=== PATIENT | female | born 1955 | race Caucasian/White ===

== ENCOUNTER 2022-02-24 21:51 | Emergency (ER) | payer OTHER, MEDICARE, SELFPAY ==
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
[2022-02-24 21:47] VITALS: BP 165/85; PULSE 103; RESP 18; TEMP 36.8; O2SAT 98
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
[2022-02-24] MEDS: HYDROmorphone HCL INJ (*CRX) 1 MG/ML SYR 0.5 MG IV PUSH (22:53)
--- NOTE | 2022-02-24 22:58 | ECG_ITS ---
Measurements Intervals Reading Rate: 103 P: 41 ND: 176 QRS: 10 QRSD: 80 T: 19 QT: 305 QTc: 400 Interpretive Statements SINUS TACHYCARDIA LOW QRS VOLTAGE NONSPECIFIC ST & T-WAVE ABNORMALITY ABNORMAL RHYTHM ECG NO PREVIOUS ECG AVAILABLE FOR COMPARISON Electronically Signed On 02-25-2022 7:21:56 CDT by Jerome Bejarano M.D.
[2022-02-24 23:11] LABS: Anion Gap 11 mmol/L (8-16); Blood Urea Nitrogen 16 mg/dL (7-17); Calcium 9.1 mg/dL (8.4-10.2); Carbon Dioxide 26 mmol/L (22-30); Chloride 101 mmol/L (98-107); Estimated CRCL calculation 68 ml/min; Estimated Glomerular Filt Rate > 60; Glucose 164 mg/dL (65-110); Potassium 3.8 mmol/L (3.4-5.0); Sodium 138 mmol/L (137-145)
--- NOTE | 2022-02-24 23:25 | PC.NURSE ---
Pt to CT via stretcher at this time.
[2022-02-24 23:39] VITALS: BP 166/88; PULSE 106; RESP 17; O2SAT 98
[2022-02-25 00:38] VITALS: BP 137/74; PULSE 87; RESP 21; O2SAT 94
[2022-02-25 00:42] LABS: Appearance Urine Clear (Clear); Bilirubin Urine Negative (Negative); Blood Urine Trace-lysed (Negative); Color Urine Yellow (Yellow); Glucose Urine UA Negative (Negative); Ketones Urine Trace mg/dL (Negative); Leukocyte Esterase Ur Trace LEU/UL (Negative); Nitrate Urine Negative (Negative); Protein Urine Negative (Negative); Specific Grav Ur 1.015 (1.001-1.035); Urobilinogen Urine 0.2 mg/dL (<2.0); pH Urine 5.5 (5.0-9.0)
[2022-02-25 00:48] LABS: Bacteria Urine Trace /hpf; Mucus Urine Rare /lpf
[2022-02-25 00:49] LABS: Add Urine Microscopic? YES
[2022-02-25 01:06] VITALS: PULSE 93
[2022-02-25 01:54] VITALS: BP 126/69; PULSE 88; RESP 19; O2SAT 97
[2022-02-25] MEDS: HYDROmorphone HCL INJ (*CRX) 1 MG/ML SYR 0.5 MG IV PUSH (01:54)
[2022-02-25 02:43] VITALS: BP 139/81; PULSE 98; RESP 19; O2SAT 98
== END 2022-02-25 02:46 | disposition short-term general hospital (02) ==
PROVIDERS: Emergency Provider Nurse Practitioner Family
DX: S22.22XA Fracture of body of sternum, initial encounter for closed fracture (principal); S82.874A Nondisplaced pilon fracture of right tibia, initial encounter for closed fracture; S09.90XA Unspecified injury of head, initial encounter; S19.9XXA Unspecified injury of neck, initial encounter; R00.0 Tachycardia, unspecified; R94.31 Abnormal electrocardiogram [ECG] [EKG]; M19.042 Primary osteoarthritis, left hand; M19.041 Primary osteoarthritis, right hand; V49.50XA Passenger injured in collision with unspecified motor vehicles in traffic accident, initial encounter
CPT/HCPCS: 29515; 36415; 70450; 71260; 72125; 73110; 73130; 73610; 74177; 80048; 81001; 87086; 87088; 93005; 96374; 99285; J1170; Q9967